=== PATIENT | male | born 1965 | race Caucasian/White ===

== ENCOUNTER 2018-01-11 13:07 | Day surgery (SDC) | payer BC ==
[~2018-01-11] VITALS: Ht 182.9 cm; Wt 85.5 kg
[~2018-01-11 13:07] MED LIST: BLOOD PRESSURE MED; CEPH500 PO; CHLO25 PO; CYCL10 PO; HYDACE5 PO; IBUP800 PO; METO25ER PO; PROM25 PO; QUET100; SOMA350 MG GT; [UNRECOGNIZED DRUG - OTHER] TOP
[2018-01-11] MEDS ORDERED: LOSA50 (13:17)
[2018-01-11] MEDS ORDERED: ATOR10 (13:17)
[2018-01-11] MEDS ORDERED: Percocet 10-321 EACH (13:18)
[2018-01-11] MEDS ORDERED: TEMA30 (13:18)
[2018-01-11] MEDS ORDERED: GABA100 (13:18)
== END 2018-01-11 15:02 | disposition home or self-care (01) ==
LOC: ORSCSDS 13:07
PROVIDERS: Surgery
PROC: 0DBN8ZX Excision of Sigmoid Colon, Via Natural or Artificial Opening Endoscopic, Diagnostic (ICD-10-PCS; principal; 2018-01-11 14:15)
DX: Z12.11 Encounter for screening for malignant neoplasm of colon (principal); D12.5 Benign neoplasm of sigmoid colon; I10 Essential (primary) hypertension; F41.9 Anxiety disorder, unspecified; E78.5 Hyperlipidemia, unspecified; F17.210 Nicotine dependence, cigarettes, uncomplicated; Z79.899 Other long term (current) drug therapy
CPT/HCPCS: 88305

== ENCOUNTER 2022-04-15 14:14 | Inpatient (IN) | payer BC ==
[~2022-04-15] VITALS: Ht 182.9 cm; Wt 102.2 kg
[~2022-04-15 14:14] MED LIST changes: +ATOR10 PO; +GABA100; +GABA100 PO; +Hydrochloroth12.5 MG PO; +KAPSPARGO SPRI100 MG PO; +LOSA50; +LOSARTAN POTAS100 MG PO; +Percocet 10-321 EACH; +QUET100 PO; +TEMA30; +TEMA30 PO
[2022-04-15] MEDS ORDERED: CATAPRES0.2 M1 PO (14:54)
[2022-04-15] MEDS ORDERED: ROSU10TA PO (14:55)
[2022-04-15] MEDS ORDERED: Ativan1 MG PO (14:56)
[2022-04-15] MEDS ORDERED: ESCI10 PO (14:57)
[2022-04-15] MEDS ORDERED: BUSP10 PO (14:58)
[2022-04-15] MEDS ORDERED: Norco 10-325 T1 EACH PO (14:59)
[2022-04-15] MEDS ORDERED: METO100 PO (15:00)
[2022-04-15] MEDS ORDERED: METO100ER PO (15:01)
[2022-04-15] MEDS ORDERED: TELM80 PO (15:01)
[2022-04-15 15:22] LABS: Base Excess Venous -4.7 mmol/L; Bicarbonate Venous 20.6 mmol/L (24.0-30.0); PCO2 Venous 40.3 mmHg (38-42); PO2 Venous 57.7 mmHg (38-42); pH Blood Venous 7.33 (7.34-7.37)
[2022-04-15 15:30] LABS: Mean Corpuscular HGB Conc 33.9 g/dL (31.5-36.5)
[2022-04-15 15:41] LABS: Hematocrit 33.9 % (37.0-53.0); Hemoglobin 11.5 g/dL (13.5-17.5); Mean Corpuscular HGB 30.7 pg (26.0-34.0); Mean Corpuscular Volume 90 fL (80-100); NRBC ABSOLUTE 0.02 K/mm3 (0.00-0.02); NRBC Auto 0.6 /100 WBC (0.0-0.2); Platelet Count 86 K/mm3 (150-400); RDW Coefficient Variation 13.2 % (11.7-14.2); RDW Standard Deviation 43.4 fL (35.1-46.3); Red Blood Cell Count 3.75 M/mm3 (4.30-5.90); White Blood Cell Count 3.25 K/mm3 (4.00-11.30)
[2022-04-15 15:47] LABS: Albumin, Blood 2.7 g/dL (3.4-5.0); Albumin/Globulin Ratio 0.7 (0.8-1.8); Bilirubin, Total 0.9 mg/dL (0.1-1.0); Bun/Creatinine Ratio 19.5 (12.0-20.0); Calcium, Blood 7.3 mg/dL (8.5-10.1); Creatinine, Blood 2.92 mg/dL (0.60-1.20); Total Protein, Blood 6.7 g/dL (6.4-8.2)
[2022-04-15 15:49] LABS: Mean Platelet Volume 13.2 fL (9.1-12.4)
[2022-04-15 15:54] LABS: BAND PERCENT MAN 3 % (0-8); BASOPHILS PERCENT MAN 0 % (0-2); EOSINOPHILS PERCENT MAN 0 % (0-6); LYMPHOCYTES % ATYPICAL MANUAL 2 % (0-0); LYMPHOCYTES ABSOLUTE MAN 0.48 K/mm3 (0.84-5.20); LYMPHOCYTES PERCENT MAN 13 % (21-46); MONOCYTES ABSOLUTE MAN 0.32 K/mm3 (0.16-1.47); MONOCYTES PERCENT MAN 10 % (4-13); MYELOCYTE ABSOLUTE MAN 0.09 K/mm3 (0.00-0.00); MYELOCYTE PERCENT MAN 3 % (0-0); NEUTROPHILS ABSOLUTE MAN 2.34 K/mm3 (1.96-9.15); SEG NEUTROPHILS PERCENT MAN 69 % (41-73); TOTAL CELLS COUNTED 100
[2022-04-15 16:36] LABS: Source, Urine Clean Catch
[2022-04-15 16:39] LABS: Influenza A, PCR NEGATIVE (NEGATIVE); Influenza B, PCR NEGATIVE (NEGATIVE); Resp Syncytial Virus, PCR NEGATIVE (NEGATIVE); SARS-Cov-2 (COVID-19) PCR, MMC NEGATIVE (NEGATIVE)
[2022-04-15 16:39] LABS: Appearance, Urine Clear (Clear); Bilirubin, Urine Neg (Neg); Blood, Urine 1+ (Neg); Color, Urine Yellow (P-Yellow); Glucose Qualitative, Urine Neg (Neg); Ketones, Urine Neg (Neg); Leukocyte Esterase, Urine Neg (Neg); Nitrite, Urine Neg (Neg); Protein, Urine 2+ (Neg); Urobilinogen, Urine NORM (Normal)
[2022-04-15 16:48] LABS: Hyaline Casts 0-2 /lpf (0-2); Red Blood Cells, Urine 0-2 /hpf (0-2); White Blood Cells, Urine 0-2 /hpf (0-5)
[2022-04-15 16:50] LABS: Bacteria Few /hpf; Squamous Epithelial Cells Not Seen /hpf (Few)
--- NOTE | 2022-04-15 17:30 | NUR ---
ASSUMED CARE: PT NEW PT FROM ED THIS SHIFT. 2L O2 IN PLACE. TRACHEAL WHEEZE NOTED. DYSPNEA ON EXERTION AND TACHYPNEA NOTED. PT ABLE TO ANSWER QUESTIONS BUT PAUSES IN BETWEEN WORDS. SINUS TACH AT 112 ON TELE. FAMILY AT BEDSIDE. NO ACUTE NEEDS AT THIS TIME.
--- NOTE | 2022-04-16 04:07 | NUR ---
UPDATE/CHANGE IN CONDITION CONCERN BROUGHT TO MY ATTENTION THAT PT STARTED SHIFT ON 2L OF OXYGEN VIA NC AND HAD INCREASED OXYGEN NEEDS TO BIPAP WITH PRESSURES 18/10 WITH 15 LITER BLEED IN. UPON ASSESSING PT HE WAS NOTED TO BECOME SOB WITH MINIMAL EXERTION; LUNG SOUNDS WERE ABNORMAL WITH AIR SOUNDING IF IT WERE TRAVELING THROUGH A HOLLOW TUBE OF SOME SORT; VERY COARSE RALES IN BASES WITH A VERY DISTANT EXPIRATORY WHEEZE NOTED. PT APPEARED TO OXYGENATE BETTER WHEN HE WAS TURNED TO HIS LEFT SIDE. CALL MADE TO DR. BENJAMIN REGARDING CONCERNS WITH INCREASE IN OXYGEN REQUIREMENTS WITH NEW ORDERS FOR A ONE VIEW CHEST XRAY, SPUTUM CX, AND PULMONOLOGY CONSULT.
[2022-04-16 04:44] LABS: Hematocrit 29.5 % (37.0-53.0); Hemoglobin 9.8 g/dL (13.5-17.5); Mean Corpuscular HGB 30.8 pg (26.0-34.0); Mean Corpuscular HGB Conc 33.2 g/dL (31.5-36.5); Mean Corpuscular Volume 93 fL (80-100); Platelet Count 79 K/mm3 (150-400); RDW Coefficient Variation 13.3 % (11.7-14.2); RDW Standard Deviation 45.7 fL (35.1-46.3); Red Blood Cell Count 3.18 M/mm3 (4.30-5.90); White Blood Cell Count 5.25 K/mm3 (4.00-11.30)
[2022-04-16 04:58] LABS: Calcium, Blood 6.9 mg/dL (8.5-10.1); Creatinine, Blood 1.45 mg/dL (0.60-1.20); Potassium, Blood 3.8 mmol/L (3.5-5.5)
--- NOTE | 2022-04-16 06:13 | NUR ---
SHIFT SUMMARY Assumed care of pt at 1900. A/O 2-3 (thinks president is Ramesh and it's May). No c/o Cp/pressure, does complain of backache. Weakness noted in legs secondary to resp distress, patient was very unsteady on feet. For now he's bedrest with a condom cath in place, BSC otherwise. Maintains 90-95% on 2L NC but loud expiratory wheezes and crackles can be heard t/o along with tachypnea and accessory muscle use. Bipap was applied (03/07 with 2L bleed in) and patients work of breathing has decreased dramatically and mentation is clearer. ST on monitor 120-130's, strong pulses t/o. BP stable. Patient is anxious. Patient started on bipap /8 and 2 L bleed in, satting 91-95%. A few hours later, patient began needing more O2 and pressures, 18/10 with 15L bleed in and satting 88-91%. Patients lungs sound crackles and exp wheezes t/o. When turning the patient on his L side to listen to lungs, when we turned him back he had a good cough and began satting 99-100%. Began titrating O2 back down. made aware, new orders for CXR, sputum culture, and pulm consult. Will report to jong FELICIANO.
--- NOTE | 2022-04-16 07:47 | NUR ---
Received report from Noc shift RN. Patient sityting up in bed watrching TV. He is alert and oriented and is able to communicate his needs, denies any current pain. He is on BIPAP 06/09 and was placed on that at change of shift Noc RN and sats 94%. He has bilateral 20ga IV's in R and LAC. LAC infusing NS at 150 ml/hr. Temp 98.5. Patient has condom cath in place.
--- NOTE | 2022-04-16 09:46 | NUR ---
Patient resting watching TV. BIPAP taken off for breakfast and RT gave updraft. He is resting on BIPAP 06/09 currently. Talked with pulmonology about consult and gave updates. He tolerated meds and breakfast well.
--- NOTE | 2022-04-16 11:30 | NUR ---
Patient self bathed. Dr Nunes by and assessed per consult. Giving calcium chloride, VSS. He remains wheezy, getting updraft currently. Dr Nunes will order chest CT, no laurent. He is currently on 2 L O2 via NC while eating lunch.
--- NOTE | 2022-04-16 15:36 | NUR ---
Patient states feeling better. He continues all shift with audible wheezes. he remains on 2L o2 via NC and sats >90%. he is finishing CPT. He is independent with position. Condom cath patent. Gave report to Dennis FELICIANO.
--- NOTE | 2022-04-16 18:31 | NUR ---
SHIFT SUMMARY PT HAS BEEN RESTING IN BED SINCE HAND-OFF REPORT WAS RECEIVED. PT STATES THAT THEY ARE FEELING BETTER THAN WHEN THEY WERE ADMITTED. PT STATES THAT THEIR WORK OF BREATHING HAS GREATLY DECREASED. FAMILY IS CURRENTLY AT BEDSIDE.
[2022-04-17 04:11] LABS: Hematocrit 27.8 % (37.0-53.0); Hemoglobin 9.3 g/dL (13.5-17.5); Mean Corpuscular HGB 30.8 pg (26.0-34.0); Mean Corpuscular HGB Conc 33.5 g/dL (31.5-36.5); Mean Corpuscular Volume 92 fL (80-100); Mean Platelet Volume 12.6 fL (9.1-12.4); NRBC ABSOLUTE 0.02 K/mm3 (0.00-0.02); NRBC Auto 0.2 /100 WBC (0.0-0.2); Platelet Count 93 K/mm3 (150-400); RDW Coefficient Variation 13.5 % (11.7-14.2); RDW Standard Deviation 45.9 fL (35.1-46.3); Red Blood Cell Count 3.02 M/mm3 (4.30-5.90); White Blood Cell Count 10.59 K/mm3 (4.00-11.30)
[2022-04-17 04:29] LABS: Calcium, Blood 7.9 mg/dL (8.5-10.1); Creatinine, Blood 0.93 mg/dL (0.60-1.20); Potassium, Blood 3.7 mmol/L (3.5-5.5)
--- NOTE | 2022-04-17 05:38 | NUR ---
SHIFT SUMMARY Patient remained A/Ox4 throughout shift. LS still expiratory wheezes and crackles at bases, but no longer tachypneic or utilizing accessory muscles. Condom cath removed today, patient was able to safely ambulate to bathroom. Oxygen remained 91-95% on 2L NC, or Bipap 18/10 2L. BP stable. Patient is sinus tach 130's when on NC, but on bipap is in the 80's. No episodes of desaturations or low BP's this evening. Patient refused CPT last night, but said he would today. No acute events overnight. Will report to dayshift RN.
--- NOTE | 2022-04-17 17:52 | NUR ---
SHIFT SUMMARY PT HAS BEEN INDEPENDENT IN ROOM AND HAS SPENT A MAJORITY OF THE DAY RESTING IN BED. PT HAS BEEN COOPERATIVE WITH ALL CARES AND HAS SHOWN AN INTEREST IN THEIR PLAN OF CARE BY ASKING QUESTIONS AND OFFERING PREFERENCES. PT VOICED A DESIRE TO PURSUE SMOKING CESSATION ASSISTANCE AFTER DISCHARGE. PT C/O 04/29 CHRONIC PAIN TO THE LOWER BACK THAT WAS TREATED PER EMAR. PT VOICED A STRONG DISLIKE FOR CHEST PHYSIOTHERAPY AND STATED THAT THEY WOULD NOT REFUSE THE TREATMENT DUE TO A DESIRE TO RECOVER AND RETURN HOME SOON POSSIBLE. SBP HAS REMAINED STABLE IN THE 140-150 RANGE. PT HAS BEEN EXPECTORATING THICK XAVIER SPUTUM THROUGHOUT THE DAY.
[2022-04-18 04:11] LABS: Bun/Creatinine Ratio 31.9 (12.0-20.0); Calcium, Blood 7.9 mg/dL (8.5-10.1); Creatinine, Blood 0.94 mg/dL (0.60-1.20); Potassium, Blood 3.7 mmol/L (3.5-5.5)
--- NOTE | 2022-04-18 05:59 | NUR ---
SHIFT SUMMARY Patient had minor difficulty sleeping through the night, states "its from all the steroids". Maintaining 89-94% on RA, LS expiratory wheeze but not as pronounced as previous nights. Patient able to speak in full sentences without being SOB. BP elevated during the night, requiring PRN. SR on tele 80's. No acute changes overnight. Will report to dayshift RN.
[2022-04-18] MEDS ORDERED: GUAI600T33 PO (12:47)
[2022-04-18] MEDS ORDERED: NICO21TP TOP (12:48)
[2022-04-18] MEDS ORDERED: SPIRIVA RESPIMAT4 G3 INH (12:48)
[2022-04-18] MEDS ORDERED: VISBIOME 112.51 EACH PO (12:49)
[2022-04-18] MEDS ORDERED: ALBU90OI INH (12:50)
[2022-04-18] MEDS ORDERED: AMOCLA875 PO (12:50)
[2022-04-18] MEDS ORDERED: PRED20 PO (12:52)
--- NOTE | 2022-04-18 15:07 | NUR ---
Shift Summary Pt is alert and oriented laying in bed, able to hold conversation. He reports no SOB, 93% RA, lung sounds exhibit expiratory wheezes and crackles. HR 80's to 100's sinus tachy, on tele. BP was increased at 150/100, no prn given. Medicated per emar. Pt discarged today @ 1340 in no distress, instructions and teaching were provided . His provided transportation home.
== END 2022-04-18 13:51 | disposition home or self-care (01) | DRG 871 ==
LOC: ER 14:14 → PCU 17:32
PROVIDERS: Emergency Medicine; Internal Medicine; Internal Medicine Critical Care Medicine; Student in an Organized Health Care Education/Training Program; ADMIT Internal Medicine
PROC: 3E03329 Introduction of Other Anti-infective into Peripheral Vein, Percutaneous Approach (ICD-10-PCS; principal; 2022-04-15)
PROC: 5A09357 Assistance with Respiratory Ventilation, Less than 24 Consecutive Hours, Continuous Positive Airway Pressure (ICD-10-PCS; 2022-04-16)
DX: A40.3 Sepsis due to Streptococcus pneumoniae (principal); J13 Pneumonia due to Streptococcus pneumoniae; J96.01 Acute respiratory failure with hypoxia; R65.21 Severe sepsis with septic shock; N17.9 Acute kidney failure, unspecified; J44.1 Chronic obstructive pulmonary disease with (acute) exacerbation; J44.0 Chronic obstructive pulmonary disease with (acute) lower respiratory infection; F17.210 Nicotine dependence, cigarettes, uncomplicated; I95.9 Hypotension, unspecified; I10 Essential (primary) hypertension; E78.5 Hyperlipidemia, unspecified; J98.01 Acute bronchospasm; Z20.822 Contact with and (suspected) exposure to COVID-19; F10.20 Alcohol dependence, uncomplicated; Z79.899 Other long term (current) drug therapy; Z79.891 Long term (current) use of opiate analgesic
CPT/HCPCS: 0241U; 36415; 71045; 71260; 80048; 80053; 81001; 82330; 82803; 83605; 83880; 84484; 85025; 85027; 87070; 87186; 87205; 87449; 93005; 93010; 94640; 94660; 94664; 94667; 94668; 94760; 94762; 96365; 96375; 99285-25; A9270; J0456; J0696; J1644; J2930; J3370; J7030; J7050; J7060; Q9967

== ENCOUNTER 2025-08-08 13:22 | Emergency (ER) | payer BC ==
[~2025-08-08] VITALS: Ht 175.3 cm; Wt 80.7 kg
[2025-08-08] MEDS ORDERED: Ampicillin Sod/Sulbactam Sod 1.5 GM in NS 100 ML IV ONE (14:30)
[2025-08-08] MEDS ORDERED: NS 1,000 ML IV ONE ×2 (15:10→15:45)
[2025-08-08 15:16] LABS: Magnesium, Blood 1.9 mg/dL (1.6-2.4); Phosphorus, Blood 2.9 mg/dL (2.5-4.9)
[2025-08-08] MEDS ORDERED: Ketorolac Tromethamine 15mg Vial IV ONE (15:50)
[2025-08-08] MEDS ORDERED: LORazepam 2 MG/ML 1ML Injection IV ONE ×2 (16:15→17:25)
[2025-08-08] MEDS ORDERED: FentaNYL Citrate 50 MCG/ML 2 ML Injection IV ONE (17:25)
[2025-08-08 18:30] VITALS: BP 113/83
== END 2025-08-08 18:44 | disposition home or self-care (01) ==
LOC: ER 13:22
PROVIDERS: Physician Assistant
DX: K12.2 Cellulitis and abscess of mouth (principal); E87.6 Hypokalemia; I10 Essential (primary) hypertension; Z79.2 Long term (current) use of antibiotics; Z79.899 Other long term (current) drug therapy
CPT/HCPCS: 36415; 83605; 83735; 84100; 87040; 96365-59; 96367; 96375; 96376; 99285-25; A9270; J0295; J1885; J2060; J3010; J3480; J7030; J7050

== ENCOUNTER → 2025-08-08 | Outpatient (CLI) | payer BC ==
[~2025-08-08] MED LIST changes: +ALBU90OI INH; +AMOCLA875 PO; +Ativan1 MG PO; +BUSP10 PO; +CATAPRES0.2 M1 PO; +ESCI10 PO; +GUAI600T33 PO; +METO100 PO; +METO100ER PO; +NICO21TP TOP; +Norco 10-325 T1 EACH PO; +PRED20 PO; +ROSU10TA PO; +SPIRIVA RESPIMAT4 G3 INH; +TELM80 PO; +VISBIOME 112.51 EACH PO
[2025-08-08 12:33] LABS: Alanine Aminotransfer (ALT/SGP 18.0 U/L (12-78); Albumin, Blood 3.0 g/dL (3.4-5.0); Albumin/Globulin Ratio 0.9 (0.8-1.8); Anion Gap 10.0 mmol/L (3-11); Aspartate Aminotrans (AST/SGOT 23.0 U/L (12-37); Bilirubin, Total 0.8 mg/dL (0.1-1.0); Blood Urea Nitrogen 12.0 mg/dL (8-24); CO2, Blood 29.0 mmol/L (21-32); Calcium, Blood 8.5 mg/dL (8.5-10.1); Chloride, Blood 95.0 mmol/L (98-108); Creatinine, Blood 0.57 mg/dL (0.60-1.20); Globulin, Blood 3.5 g/dL (2.2-4.0); Glucose, Blood 161.0 mg/dL (70-99); Potassium, Blood 2.6 mmol/L (3.5-5.5); Sodium, Blood 131.0 mmol/L (136-145); Total Protein, Blood 6.5 g/dL (6.4-8.2)
[2025-08-08 14:03] LABS: BASOPHILS ABSOLUTE AUTO 0.01 K/mm3 (0.00-0.23); BASOPHILS PERCENT AUTO 0 % (0-2); EOSINOPHILS ABSOLUTE AUTO 0.01 K/mm3 (0.00-0.68); EOSINOPHILS PERCENT AUTO 0 % (0-6); Hematocrit 31.7 % (37.0-53.0); IMMATURE GRAN ABSOLUTE AUTO 0.11 K/mm3 (0.00-0.10); IMMATURE GRAN PERCENT AUTO 1 % (0-1); LYMPHOCYTES ABSOLUTE AUTO 1.23 K/mm3 (0.84-5.20); LYMPHOCYTES PERCENT AUTO 13 % (21-46); MONOCYTES ABSOLUTE AUTO 0.42 K/mm3 (0.16-1.47); MONOCYTES PERCENT AUTO 4 % (4-13); NEUTROPHILS ABSOLUTE AUTO 7.77 K/mm3 (1.96-9.15); NEUTROPHILS PERCENT AUTO 81 % (41-73); NRBC ABSOLUTE 0.05 K/mm3 (0.00-0.02); NRBC Auto 0.5 /100 WBC (0.0-0.2); Platelet Count 235 K/mm3 (150-400); RDW Standard Deviation 57.1 fL (35.1-46.3)
[2025-08-08 14:04] LABS: Hemoglobin 13.2 g/dL (13.5-17.5); Mean Corpuscular HGB Conc 37.3 g/dL (31.5-36.5); Mean Corpuscular Volume 99 fL (80-100); RDW Coefficient Variation 16.2 % (11.7-14.2)
== END ==
LOC: LAB SHORT 12:12 → LAB 12:12
PROVIDERS: Family Medicine
DX: R50.9 Fever, unspecified (principal)
CPT/HCPCS: 80053; 85025